=== PATIENT | male | born 1995 | race African-American/Black ===

== ENCOUNTER 2017-12-11 00:10 | Emergency (ER) | END 2017-12-11 05:45 | disposition home or self-care (01) ==

== ENCOUNTER 2018-02-19 02:47 | Emergency (ER) | END 2018-02-19 04:06 | disposition home or self-care (01) ==

== ENCOUNTER 2019-05-30 08:30 | Emergency (ER) | payer OTHER ==
[~2019-05-30] VITALS: Ht 175.3 cm; Wt 86.0 kg
[~2019-05-30 08:30] MED LIST: ASPI-826 PO; FIORICET PO; HYDR-3980 PO; IBUP-1542 PO; ONDA4TAB14 PO
[2019-05-30 08:32] VITALS: BP 117/76; PULSE 58; RESP 18; Ht 175.3 cm; Wt 86.0 kg
[2019-05-30] MEDS ORDERED: KETOROLAC 30 MG INJ IM STA (09:01)
[2019-05-30] MEDS ORDERED: BUTA1CAP38 PO (09:02)
--- NOTE | 2019-05-30 09:10 | ERD ---
ER Documentation Chief Complaint Chief Complaint migraine since this morning HPI Patient is a 24-year-old male, past medical history of migraine headaches, presents to the ER for concerns of a headache which started earlier this morning. Patient states he has pain on the right side of his head. Patient reports associated photophobia and phonophobia. Patient denies any vomiting. Patient reports history of migraines in the past and states that current headache feels the same. Patient denies any fevers, chills, neck pain, neck stiffness, unilateral weakness, slurred speech, difficulty ambulating. Patient denies any abdominal pain, chest pain, shortness of breath. Patient states he had CT scans in the past and they were negative. ROS All systems reviewed and are negative except as per history of present illness. Medications Home Meds Active Scripts Reinogdnkn-Pqhfgtuaapczi-Udkmflko* (Fioricet*) 50-300-40 Mg Capsule, 1 CAP PO Q8, #10 CAP Prov:MAU SEPULVEDA PA-C 05/30/19 Ondansetron (Ondansetron Odt) 4 Mg Tab.rapdis, 4 MG PO Q6H PRN for NAUSEA AND/OR VOMITING, #10 TAB Prov:WAN MAK PA-C 02/19/18 Aspirin/Acetaminophen/Caffeine (Excedrin Extra Strength Caplet) 1 Each Tablet, 1 EACH PO Q6, #30 TAB Prov:WAN MAK PA-C 02/19/18 Hydrocodone/Acetaminophen ([place] 10-325 Tablet) 1 Each Tablet, 1 TAB PO Q6H PRN for SEVERE PAIN LEVEL 7-10, #10 TAB Prov:BERNIE AMEZCUA BRIM CURLER 12/11/17 Ibuprofen* (Motrin*) 600 Mg Tab, 600 MG PO Q6H PRN for PAIN AND OR ELEVATED TEMP, #30 TAB Prov:BERNIE AMEZCUA BRIM CURLER 12/11/17 Acetamin/Butalbital/Caffeine* (Fioricet*) 1 Tab Tab, 1 TAB PO Q4H PRN for PAIN LEVEL 1-5, #20 TAB Prov:BOSTON PASCUAL PA-C 05/10/16 Ibuprofen* (Motrin*) 600 Mg Tab, 600 MG PO Q6, #30 TAB Prov:DAVID HERNÁNDEZ PA-C 01/11/16 Allergies Allergies: Coded Allergies: No Known Allergy (Unverified , 02/19/18) PMhx/Soc Medical and Surgical Hx: pt denies Surgical Hx History of Surgery: No Anesthesia Reaction: No Hx Neurological Disorder: Yes (SEIZURE) Hx Respiratory Disorders: No Hx Cardiac Disorders: No Hx Psychiatric Problems: No Hx Miscellaneous Medical Probl: No Hx Alcohol Use: Yes (occassional) Hx Substance Use: Yes (marijuana) Hx Tobacco Use: No Smoking Status: Never smoker FmHx Family History: No diabetes Physical Exam Vitals Vital Signs Date Temp Pulse Resp B/P (MAP) Pulse Ox O2 O2 Flow FiO2 Time Delivery Rate 05/30/19 97.8 58 18 117/76 100 08:32 (90) Physical Exam GENERAL: Well-developed, well-nourished male. Appears in no acute distress. Speaking in full sentences HEAD: Normocephalic, atraumatic. EYES: Pupils are equally reactive bilaterally. EOMs grossly intact. No conjunctival erythema. ENT: Moist mucous membranes. No uvula deviation. No kissing tonsils. NECK: Supple. No meningismus. Normal range of motion of the neck. LUNG: Clear to auscultation bilaterally. No rhonchi, wheezing, rales or coarse breath sounds. HEART: Regular rate and rhythm. No murmurs, rubs or gallops. EXTREMITIES: Equal pulses bilaterally. No peripheral clubbing, cyanosis or edema. No unilateral leg swelling. NEUROLOGIC: Alert and oriented x3, cooperative. Mood and affect appropriate to situation. Cranial nerves II through XII are grossly intact. Normal speech. Motor exam: 5/5 strength in upper and lower extremities. Sensory exam: Sensation intact to light touch on all four extremities. Cerebellar function exam: Rapid alternating movements intact. No dysmetria on ehznaa-pw-pppu and jmtb-dy-xzrl test. Steady gait. No pronator drift. SKIN: Normal color. Warm and dry. No rashes or lesions. Results 24 hrs Current Medications Medications Dose Sig/Sangita Start Time Status Last (Trade) Ordered Route PRN Stop Time Admin Dose Reason Admin Ketorolac 30 mg ONCE STAT 05/30/19 DC Tromethamine IM 09:01 (Toradol) 05/30/19 09:02 Procedures/MDM MEDICAL DECISION MAKING: This is a 24-year-old male with history of migraine headaches presents the ER for concerns of a right-sided headache along with associated photophobia and phonophobia which started this morning. Vital signs were reviewed. Patient was afebrile. Patient is not hypoxic. Patient stated that the headache was gradual. Patient stated that current headache was similar to headaches in the past. Patient denied any fevers, neck stiffness, jaw claudication, visual changes or LOC. Full neurological exam was normal. Patient was given Toradol here. At this time with the patient presentation is most consistent migraine headache. Low suspicion for CVA, TIA, intracranial hemorrhage, meningitis, encephalitis, CO poisoning, temporal arteritis, benign intracranial hypertension, intracranial mass, glaucoma, preeclampsia, sinusitis, cluster headache. Patient was nontoxic, mfb-yjx-chfbdzhjn prior to discharge. PRESCRIPTIONS: Fioricet DISCHARGE: At this time, patient is stable for discharge and outpatient management. I have encouraged the patient to hydrate well. I have instructed the patient to follow- up with his/her primary care physician in 1-2 days. If symptoms persist, patient may need to see a specialist for further examinations and testing. I have instructed the patient to promptly return to the ER at any time for any new or worsening symptoms including increased increased pain, fever, nausea, vomiting, numbness, neck stiffness, visual changes, weakness or LOC. The patient and/or family expressed understanding of and agreement with this plan. All questions were answered. Home care instructions were provided. Disclaimer: Inadvertent spelling and grammatical errors are likely due to EHR/dictation software use and do not reflect on the overall quality of patient care. Also, please note that the electronic time recorded on this note does not necessarily reflect the actual time of the patient encounter. Departure Diagnosis: Primary Impression: Headache Headache type: unspecified Headache chronicity pattern: unspecified pattern Intractability: not intractable Qualified Codes: R51 - Headache Condition: Fair Patient Instructions: Self-Care for Headaches Referrals: COMMUNITY CLINICS YOU HAVE RECEIVED A MEDICAL SCREENING EXAM AND THE RESULTS INDICATE THAT YOU DO NOT HAVE A CONDITION THAT REQUIRES URGENT TREATMENT IN THE EMERGENCY DEPARTMENT. FURTHER EVALUATION AND TREATMENT OF YOUR CONDITION CAN WAIT UNTIL YOU ARE SEEN IN YOUR DOCTORS OFFICE WITHIN THE NEXT 1-2 DAYS. IT IS YOUR RESPONSIBILITY TO MAKE AN APPOINTMENT FOR FOLOW-UP CARE. IF YOU HAVE A PRIMARY DOCTOR --you should call your primary doctor and schedule an appointment IF YOU DO NOT HAVE A PRIMARY DOCTOR YOU CAN CALL OUR PHYSICIAN REFERRAL HOTLINE AT IF YOU CAN NOT AFFORD TO SEE A PHYSICIAN YOU CAN CHOSE FROM THE FOLLOWING [facility] [address] [facility] [address] [place] [facility] [address] [facility] [address] [facility] [address] [facility]. [facility] [address] [facility]. [facility] YOU HAVE RECEIVED A MEDICAL SCREENING EXAM AND THE RESULTS INDICATE THAT YOU DO NOT HAVE A CONDITION THAT REQUIRES URGENT TREATMENT IN THE EMERGENCY DEPARTMENT. FURTHER EVALUATION AND TREATMENT OF YOUR CONDITION CAN WAIT UNTIL YOU ARE SEEN IN YOUR DOCTORS OFFICE WITHIN THE NEXT 1-2 DAYS. IT IS YOUR RESPONSIBILITY TO MAKE AN APPOINTMENT FOR FOLOW-UP CARE. IF YOU HAVE A PRIMARY DOCTOR --you should call your primary doctor and schedule and appointment IF YOU DO NOT HAVE A PRIMARY DOCTOR YOU CAN CALL OUR PHYSICIAN REFERRAL HOTLINE AT . IF YOU CAN NOT AFFORD TO SEE A PHYSICIAN YOU CAN CHOSE FROM THE FOLLOWING [facility]: [facility] [address] [place] [address] [facility] [address] [place] [address] [facility] [address] [place] [address] Additional Instructions: Call your primary care doctor TOMORROW for an appointment during the next 1-2 days.See the doctor sooner or return here if your condition worsens before your appointment time. MAU SEPULVEDA PA-C May 30, 2019 09:10
== END 2019-05-30 09:17 | disposition home or self-care (01) ==
LOC: FTE 08:30
DX: R51 Headache (principal); R40.2142 Coma scale, eyes open, spontaneous, at arrival to emergency department; R40.2252 Coma scale, best verbal response, oriented, at arrival to emergency department; R40.2362 Coma scale, best motor response, obeys commands, at arrival to emergency department; Z79.82 Long term (current) use of aspirin
CPT/HCPCS: 96372; J1885; Z7502

== ENCOUNTER 2019-07-15 18:43 | Emergency (ER) | payer OTHER ==
[~2019-07-15] VITALS: Ht 177.8 cm; Wt 84.7 kg
[~2019-07-15 18:43] MED LIST changes: +AMOX500C2 PO; +AZIT250T PO; +BUTA1CAP38 PO
[2019-07-15 18:51] VITALS: BP 121/66; PULSE 73; RESP 16; Ht 177.8 cm; Wt 84.7 kg
== END 2019-07-15 19:29 | disposition home or self-care (01) ==
LOC: E/R 18:43
DX: J03.90 Acute tonsillitis, unspecified (principal)
CPT/HCPCS: 99283